=== PATIENT | female | born 1990 | race Asian ===

== ENCOUNTER 2021-11-03 00:38 | Inpatient (IN) | payer BC ==
[2021-11-03 01:09] VITALS: BMI 27.3
[2021-11-03] MEDS ORDERED: Ondansetron PF 4 MG/2 ML Vial IVP PRN ×3 (01:38→16:17)
[2021-11-03] MEDS ORDERED: Ibuprofen 800 MG TAB PO PRN (01:38)
[2021-11-03] MEDS ORDERED: hydrALAZINE 20 MG/ML VIAL SLOW IVP PRN ×2 (01:38→16:17)
[2021-11-03] MEDS ORDERED: Promethazine HCl 25 MG/ML VIAL IM PRN ×2 (01:38→08:07)
[2021-11-03] MEDS ORDERED: Acetaminophen 500 MG TAB PO PRN (01:38)
[2021-11-03] MEDS ORDERED: Lidocaine 1% (PF) 30 ML VIAL SC PRN (01:38)
[2021-11-03] MEDS ORDERED: NS w/ Oxytocin 30 units 500 ML IV SCH ×3 (01:45→16:30)
[2021-11-03 02:42] LABS: Mean Corpuscular HGB CONC 33.8 g/dL (32.0-36.0); Mean Corpuscular Hemoglobin 27.5 pg (27.0-33.0); Mean Corpuscular Volume 81.4 fl (81.6-98.3); Mean Platelet Volume 13.4 fl (7.4-10.4); RBC Distribution Width 14.6 % (11.5-14.5); Red Blood Cell (RBC) Count 4.73 10x6/uL (3.90-5.03)
[2021-11-03 02:43] LABS: Platelet Count 95 10x3/uL (150-450)
[2021-11-03 03:09] LABS: Syphilis Antibody Nonreactive (Nonreactive); Syphilis Antibody Index 0.04 S/CO (<1.00 Non-Reactive)
[2021-11-03 03:10] LABS: Hep B Surf Ag Non-Reactive S/CO (NonReactive)
[2021-11-03 03:13] LABS: HBSAg Index 0.19 S/CO (0-0.99)
[2021-11-03] MEDS ORDERED: Fentanyl 2 mcg/Bup 0.1% Cadd 100 ML ONE (07:24)
[2021-11-03] MEDS ORDERED: ePHEDrine Sulfate 50 MG/10 ML VIAL ONE (08:00)
[2021-11-03] MEDS ORDERED: Bupivacaine/Epinephrine 0.25% 30 ML VIAL ONE (08:00)
[2021-11-03] MEDS ORDERED: diphenhydrAMINE 50 MG/ML VIAL IVP PRN (08:07)
[2021-11-03] MEDS ORDERED: Naloxone HCl 0.4 mg/ml Vial IVP PRN ×2 (08:07)
[2021-11-03] MEDS ORDERED: Acetaminophen 325 MG TAB PO PRN ×2 (08:07→16:19)
[2021-11-03] MEDS ORDERED: Lactated Ringer's 500 ML IV PRN (08:07)
[2021-11-03] MEDS ORDERED: Moisturizing Cream (Eucerin) 113 GM JAR TOP PRN (08:07)
[2021-11-03] MEDS ORDERED: Communication Order-Pharmacy FS SCH (08:15)
[2021-11-03] MEDS ORDERED: Fentanyl 2 mcg/Bupivacaine 0.1% Cassette 100 ML EPIDURAL SCH (08:15)
[2021-11-03] MEDS ORDERED: Dextrose 5%-Lactated Ringers 1,000 ML IV SCH (10:30)
[2021-11-03] MEDS: Lactated Ringer's 1,000 ML IV SCH ×2 (11:04→17:26)
[2021-11-03] MEDS: ePHEDrine Sulfate 50 MG/10 ML VIAL SLOW IVP PRN ×2 (11:05→11:33)
[2021-11-03] MEDS ORDERED: ePHEDrine Sulfate 50 MG/10 ML VIAL SLOW IVP SCH (12:15)
[2021-11-03] MEDS ORDERED: Misoprostol 200 MCG TAB ONE (13:48)
[2021-11-03] MEDS ORDERED: Methylergonovine 0.2 MG/ML VIAL ONE (13:48)
[2021-11-03] MEDS ORDERED: Zolpidem Tartrate 5 MG TAB PO PRN (16:17)
[2021-11-03] MEDS ORDERED: diphenhydrAMINE 25 MG CAP PO PRN (16:17)
[2021-11-03] MEDS ORDERED: Benzocaine-Menthol 82.5 ML CAN TOP PRN (16:17)
[2021-11-03] MEDS ORDERED: Milk Of Magnesia 30 ML UDCUP PO PRN (16:17)
[2021-11-03] MEDS ORDERED: Boostrix 0.5 ML (Tdap) VIAL IM ONE (16:17)
[2021-11-03] MEDS ORDERED: Preparation H Ointment 28 GM TUBE PR PRN (16:17)
[2021-11-03] MEDS ORDERED: HYDROcodone/Acetaminophen 5/325 mg Tablet PO PRN ×2 (16:17)
[2021-11-03] MEDS ORDERED: Bisacodyl 10 MG SUPP PR PRN (16:17)
[2021-11-03] MEDS ORDERED: Misoprostol 200 MCG TAB VAG PRN (16:17)
[2021-11-03] MEDS ORDERED: Lanolin Ointment 7 GM TUBE TOP PRN (16:17)
[2021-11-03] MEDS ORDERED: Witch Hazel-Glycerin 1 EACH JAR TOP PRN (16:19)
[2021-11-03] MEDS ORDERED: Docusate Calcium (SURFAK) 240 MG CAP PO PRN (16:19)
[2021-11-03] MEDS: Ferrous Sulfate 325 MG TAB PO SCH (19:30)
[2021-11-03] MEDS: Docusate 100 MG CAP PO SCH (21:17)
[2021-11-03] MEDS ORDERED: Ibuprofen 800 MG TAB PO SCH (22:00)
[2021-11-03] MEDS: Ibuprofen 800 MG TAB PO SCH (23:57)
[2021-11-04 05:09] LABS: Hemoglobin 10.9 g/dL (12.0-15.5); Mean Corpuscular HGB CONC 33.3 g/dL (32.0-36.0); Mean Corpuscular Hemoglobin 27.4 pg (27.0-33.0); Mean Corpuscular Volume 82.2 fl (81.6-98.3); Mean Platelet Volume 12.9 fl (7.4-10.4); Platelet Count 79 10x3/uL (150-450); RBC Distribution Width 14.6 % (11.5-14.5); Red Blood Cell (RBC) Count 3.98 10x6/uL (3.90-5.03); White Blood Cell (WBC) Count 11.7 10x3/uL (3.5-10.5)
[2021-11-04] MEDS: Ferrous Sulfate 325 MG TAB PO SCH ×2 (08:38→17:44)
[2021-11-04] MEDS: Prenatal Vitamin 1 TAB PO SCH (08:54)
[2021-11-04] MEDS: Docusate 100 MG CAP PO SCH ×2 (08:54→21:37)
[2021-11-04] MEDS: Ibuprofen 800 MG TAB PO SCH ×2 (08:54→17:48)
[2021-11-04 22:32] VITALS: TEMP 98.3
[2021-11-05] MEDS: Ibuprofen 800 MG TAB PO SCH ×2 (00:48→07:42)
[2021-11-05 07:17] VITALS: BP 117/65
[2021-11-05] MEDS: Docusate 100 MG CAP PO SCH (07:42)
[2021-11-05] MEDS: Prenatal Vitamin 1 TAB PO SCH (07:42)
[2021-11-05] MEDS: Ferrous Sulfate 325 MG TAB PO SCH ×2 (07:43→14:04)
== END 2021-11-05 17:55 | disposition home or self-care (01) | DRG 807 ==
LOC: CSHLD/OP 00:38 → CSHLD 01:29 → CSHPP 18:15
PROVIDERS: ADMIT Obstetrics & Gynecology; ATTEND Obstetrics & Gynecology
PROC: 10E0XZZ Delivery of Products of Conception, External Approach (ICD-10-PCS; principal; 2021-11-03)
PROC: 3E033VJ Introduction of Other Hormone into Peripheral Vein, Percutaneous Approach (ICD-10-PCS; 2021-11-03)
DX: O42.02 Full-term premature rupture of membranes, onset of labor within 24 hours of rupture (principal); Z37.0 Single live birth; Z3A.37 37 weeks gestation of pregnancy; Z86.16 Personal history of COVID-19; Z79.82 Long term (current) use of aspirin; F32.A Depression, unspecified; O99.344 Other mental disorders complicating childbirth
CPT/HCPCS: 36415; 85027; 86780; 86850; 86900; 86901; 87340; J2590; J7120